=== PATIENT | female | born 1950 | race Caucasian/White ===

== ENCOUNTER 2017-04-23 12:54 | Emergency (ER) | payer MEDICARE, OTHER ==
[~2017-04-23] VITALS: Ht 154.9 cm; Wt 61.2 kg
[2017-04-23] MEDS ORDERED: Methocarbamol 500mg tab ORAL ONE (13:15)
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
--- NOTE | 2017-04-23 16:09 | Diagnostic Imaging Report ---
Indications: Headache, nausea, dizziness Technique: Spiral acquisitions obtained through the brain. Angled axial and coronal 5 x 5 mm slices were reconstructed. Total dose length product 1354.44 mGycm. CTDI vol(s) 70.38 mGy. Dose reduction achieved using automated exposure control Comparison: Findings: There is mild age-related enlargement of the ventricles and extra axial CSF spaces. There is minimal periventricular deep white matter chronic ischemic change. 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 No acute intracranial hemorrhage or edema. No mass effect nor midline shift. Otherwise normal blackwell-white differentiation. Intact calvarium. Visualized orbits and sinuses are unremarkable Impression: Mild age-related changes. Negative for acute intracranial bleed or mass effect The CT scanner at [facility] is accredited by the [employer] and the scans are performed using protocols designed to limit radiation exposure to as low as reasonably achievable to attain images of sufficient resolution adequate for diagnostic evaluation.
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
[2017-04-23] MEDS ORDERED: IBUPROFEN600 MG ORAL (16:40)
[2017-04-23] MEDS ORDERED: ROBAXIN-750750 MG PO (16:40)
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
--- NOTE | 2017-04-23 16:49 | Diagnostic Imaging Report ---
Indications: Reason For Exam: PAIN Technique: 3 views of the thoracic spine Comparison: None Findings: Bony alignment is normal. Vertebral body heights are preserved. Disc spaces are preserved. The bones appear osteoporotic. The pedicles are intact. There is biapical pulmonary parenchymal scarring incidentally noted. Impression: No acute bony trauma Osteoporosis Other findings as noted
[2017-04-23 17:00] VITALS: BP 140/78
== END 2017-04-23 17:00 | disposition home or self-care (01) ==
LOC: EDBD 12:54 → EMR 13:12
DX: M54.6 Pain in thoracic spine (principal); M54.2 Cervicalgia; R51 Headache; R07.89 Other chest pain; R11.0 Nausea; V43.52XA Car driver injured in collision with other type car in traffic accident, initial encounter; Y92.410 Unspecified street and highway as the place of occurrence of the external cause; M81.0 Age-related osteoporosis without current pathological fracture
CPT/HCPCS: 70450; 71010; 72070; 72125; 99284